=== PATIENT | male | born 1935 | race Caucasian/White ===

== ENCOUNTER 2017-04-15 04:35 | Emergency (ER) | payer MEDICARE ==
[~2017-04-15] VITALS: Ht 188 cm; Wt 122.7 kg
[~2017-04-15 04:35] MED LIST: ASPIRIN EC81 MG PO; CARBAMAZEPIN200 MG PO; CARVEDILOL12.5 MG PO; CIPROFLOXACN500 MG PO; DIOVAN160 MG PO; ENDOCET1 TA3 PO; HUMULIN N1 ML SC; KEFLEX500 MG PO; LEVOTHYROXIN100 MC1 PO; LEVOTHYROXIN100 MCG PO; LOSARTAN POT50 MG PO; PERCOCET 10/31 COMBO PO; RED YEAST RICE EXTRA PO; VANTIN100 MG PO
[2017-04-15] MEDS ORDERED: TOPROL XL50 MG PO (04:56)
[2017-04-15] MEDS ORDERED: ANTIVERT PO (04:57)
[2017-04-15] MEDS ORDERED: LASIX 20 MG TAB20 MG PO (04:58)
[2017-04-15 05:18] LABS: URINE BILIRUBIN - DIPSTICK NEGATIVE (NEGATIVE); URINE BLOOD DIPSTICK SMALL (NEGATIVE); URINE COLOR YELLOW; URINE GLUCOSE - DIPSTICK 500 mg/dL (NEGATIVE); URINE KETONE NEGATIVE (NEGATIVE); URINE LEUK ESTERASE NEGATIVE (NEGATIVE); URINE NITRITE - DIPSTICK NEGATIVE (Negative); URINE PROTEIN - DIPSTICK NEGATIVE (NEG-TRACE); URINE UROBILINOGEN - DIPSTICK 0.2 E.U./dL (0.2)
[2017-04-15 05:19] LABS: URINE CLARITY CLEAR
[2017-04-15 05:29] LABS: URINE RBC 0-2 RBC/hpf (0-5); URINE SQUAMOUS EPITHELIAL CELL FEW EPI/hpf (0-FEW); URINE WBC 0-2 WBC/hpf (0-5)
[2017-04-15 06:38] LABS: HEMATOCRIT 38.6 % (39.0-50.0); HEMOGLOBIN 13.2 g/dl (14.0-18.0); IMMATURE GRANULOCYTES 0.4 % (0.0-1.0); MEAN CELL VOLUME 86.4 fL CALC (80.0-100.0); MEAN CORPUSCULAR HGB 29.5 pG CALC (26.0-32.0); MEAN CORPUSCULAR HGB CONC 34.2 g/L CALC (32.0-36.0); NEUT# 10.85 thou/uL (1.82-7.42); RED BLOOD COUNT 4.47 mill/uL (4.70-6.10); RED CELL DISTRI WIDTH 12.7 % (11.5-15.5)
[2017-04-15 07:06] LABS: ALBUMIN 3.9 g/dL (3.2-5.0); ALKALINE PHOSPHATASE 108 u/l (38-126); ANION GAP 16 (6-22 (CALC)); BILIRUBIN, TOTAL 0.4 mg/dL (0.0-1.4); BUN 23 mg/dL (8-23); BUN/CREATININE RATIO 17 (12-20 (CALC)); CALCIUM 9.5 mg/dL (8.4-10.2); CARBON DIOXIDE 24 mmol/l (22-30); CHLORIDE 101 mmol/l (95-108); CREATININE 1.3 mg/dL (0.7-1.3); GFR 53 ML/MIN (>=60 (CALC)); GFR FOR AFR.AMER. > 60 ML/MIN (>=60 (CALC)); GLUCOSE 228 mg/dL (82-115); POTASSIUM 4.7 mmol/l (3.5-5.1); SGOT/AST 25 u/l (19-48); SGPT/ALT 31 u/l (11-66); SODIUM 136 mmol/l (137-146); TOTAL PROTEIN 6.4 g/dL (6.3-8.2)
[2017-04-15 10:25] VITALS: BP 132/68
== END 2017-04-15 10:25 | disposition short-term general hospital (02) ==
LOC: ED 04:35
PROVIDERS: Emergency Medicine
DX: S72.141A Displaced intertrochanteric fracture of right femur, initial encounter for closed fracture (principal); E11.9 Type 2 diabetes mellitus without complications; I10 Essential (primary) hypertension; E03.9 Hypothyroidism, unspecified; W18.30XA Fall on same level, unspecified, initial encounter; Y92.003 Bedroom of unspecified non-institutional (private) residence as the place of occurrence of the external cause; R42 Dizziness and giddiness

== ENCOUNTER 2020-07-04 05:16 | Emergency (ER) | payer MEDICARE ==
[~2020-07-04 05:16] MED LIST changes: +ANTIVERT PO; +LASIX 20 MG TAB20 MG PO; +TOPROL XL50 MG PO
[2020-07-04 05:34] LABS: HEMATOCRIT 37.9 % (39.0-50.0); HEMOGLOBIN 12.2 g/dl (14.0-18.0); IMMATURE GRANULOCYTES 0.3 % (0.0-5.0); MEAN CELL VOLUME 90.5 fL CALC (80.0-100.0); MEAN CORPUSCULAR HGB 29.1 pG CALC (26.0-32.0); MEAN CORPUSCULAR HGB CONC 32.2 g/dL CAL (32.0-36.0); NEUT# 10.41 thou/uL (1.82-7.42); RED BLOOD COUNT 4.19 mill/uL (4.70-6.10); RED CELL DISTRI WIDTH 13.1 % (11.5-15.5)
[2020-07-04] MEDS ORDERED: MECLIZINE25 MG PO (05:40)
[2020-07-04] MEDS ORDERED: HUMULIN N100 UNIT/M SC (05:43)
[2020-07-04 05:51] LABS: BILIRUBIN, TOTAL 0.5 mg/dL (0.0-1.4); POTASSIUM 4.1 mmol/l (3.5-5.1); TOTAL PROTEIN 7.1 g/dL (6.3-8.2)
[2020-07-04 06:31] VITALS: BP 154/69
== END 2020-07-04 06:33 | disposition home or self-care (01) ==
LOC: ED 05:16
PROVIDERS: Family Medicine
DX: E11.649 Type 2 diabetes mellitus with hypoglycemia without coma (principal); I10 Essential (primary) hypertension; E03.9 Hypothyroidism, unspecified; Z79.4 Long term (current) use of insulin

== ENCOUNTER 2023-12-04 13:26 | Inpatient (IN) | payer MEDICARE ==
[2023-12-04] VITALS (7 sets, daily range): BP systolic 113–153; BP diastolic 56–89
[~2023-12-04] VITALS: Ht 188 cm; Wt 91.2 kg
[~2023-12-04 13:26] MED LIST changes: +HUMULIN N100 UNIT/M SC; +MECLIZINE25 MG PO
[2023-12-04] MEDS ORDERED: VANCOMYCIN HCL 1 GM in SODIUM CHLORIDE 0.9% 250 ML IV ONE (14:55)
[2023-12-04] MEDS ORDERED: CEFEPIME HYDROCHLORIDE 2 GM in SODIUM CHLORIDE 0.9% 100 ML IV ONE (14:55)
[2023-12-04 15:08] LABS: BASO% 0.5 % (0-3); EOS% 7.5 % (0-8); HEMATOCRIT 34.4 % (39.0-50.0); HEMOGLOBIN 11.6 g/dl (14.0-18.0); IMMATURE GRANULOCYTES 0.2 % (0.0-5.0); LYMPH% 15.9 % (15-41); MEAN CELL VOLUME 87.5 fL CALC (80.0-100.0); MEAN CORPUSCULAR HGB 29.5 pG CALC (26.0-32.0); MEAN CORPUSCULAR HGB CONC 33.7 g/dL CAL (32.0-36.0); MONO% 7.7 % (2-13); NEUT# 4.25 thou/uL (1.82-7.42); NEUT% 68.2 % (42-76); RED BLOOD COUNT 3.93 mill/uL (4.70-6.10)
[2023-12-04 15:25] LABS: ALBUMIN 3.8 g/dL (3.2-5.0); CREATININE 1.8 mg/dL (0.7-1.3); POTASSIUM 4.3 mmol/l (3.5-5.1); TOTAL PROTEIN 6.4 g/dL (6.3-8.2)
[2023-12-04 15:47] LABS: BILIRUBIN, TOTAL 0.7 mg/dL (0.2-1.3)
[2023-12-04] MEDS ORDERED: MAGNESIUM HYDROXIDE 30 ML UDC PO PRN (16:10)
[2023-12-04] MEDS ORDERED: ACETAMINOPHEN 325 MG/TAB PO PRN (16:10)
[2023-12-04] MEDS ORDERED: SODIUM CHLORIDE 0.9% 1,000 ML IV PRN (16:10)
[2023-12-04] MEDS ORDERED: INSULIN LISPRO 100 UNITS/ML ML SC SCH ×2 (17:00→22:15)
[2023-12-04] MEDS ORDERED: CEFEPIME HYDROCHLORIDE 2 GM in SODIUM CHLORIDE 0.9% 100 ML IV SCH (17:45)
[2023-12-04] MEDS ORDERED: DEXTROSE 250 ML IV PRN ×2 (19:45→22:05)
[2023-12-04] MEDS ORDERED: oxyCODONE 10MG/APAP 325 MG 1 COMBO TAB PO PRN (19:45)
[2023-12-04] MEDS ORDERED: INSULIN NPH 100 UNIT/ML SC SCH (19:50)
[2023-12-04] MEDS ORDERED: METOPROLOL SUCCINATE 50 MG/TAB PO SCH (21:00)
[2023-12-04] MEDS ORDERED: ENOXAPARIN SODIUM 30 MG/0.3 ML INJ SC SCH (21:00)
[2023-12-04] MEDS ORDERED: CARBAMAZEPINE 200 MG TAB PO SCH (21:00)
[2023-12-04] MEDS ORDERED: INSULIN DETEMIR 100 UNITS/ML SC SCH (22:00)
[2023-12-05] VITALS (10 sets, daily range): BP systolic 109–148; BP diastolic 44–74
[2023-12-05 04:56] LABS: HEMATOCRIT 30.9 % (39.0-50.0); HEMOGLOBIN 10.3 g/dl (14.0-18.0); MEAN CELL VOLUME 88.5 fL CALC (80.0-100.0); MEAN CORPUSCULAR HGB 29.5 pG CALC (26.0-32.0); MEAN CORPUSCULAR HGB CONC 33.3 g/dL CAL (32.0-36.0); RED BLOOD COUNT 3.49 mill/uL (4.70-6.10); RED CELL DISTRI WIDTH 13.1 % (11.5-15.5)
[2023-12-05 05:12] LABS: ALBUMIN 3.1 g/dL (3.2-5.0); CREATININE 1.8 mg/dL (0.7-1.3); POTASSIUM 3.8 mmol/l (3.5-5.1); TOTAL PROTEIN 5.6 g/dL (6.3-8.2)
[2023-12-05 05:20] LABS: BILIRUBIN, TOTAL 0.3 mg/dL (0.2-1.3)
[2023-12-05] MEDS ORDERED: LEVOTHYROXINE SODIUM 100 MCG TAB PO SCH (06:00)
[2023-12-05] MEDS ORDERED: LOSARTAN Potassium 25 MG/TAB PO SCH (09:00)
[2023-12-05] MEDS ORDERED: ASPIRIN EC 81 MG/TAB PO SCH (09:00)
[2023-12-05] MEDS ORDERED: VANCOMYCIN HCL 1 GM in SODIUM CHLORIDE 0.9% 250 ML IV SCH (17:00)
[2023-12-05] MEDS ORDERED: SODIUM CHLORIDE 0.9% 250 ML IV ONE (17:57)
[2023-12-05] MEDS ORDERED: INSULIN DETEMIR 100 UNITS/ML SC SCH (21:00)
[2023-12-06] VITALS (12 sets, daily range): BP systolic 117–161; BP diastolic 45–77
[2023-12-06 05:50] LABS: BASO% 0.8 % (0-3); EOS% 7.8 % (0-8); HEMOGLOBIN 10.8 g/dl (14.0-18.0); IMMATURE GRANULOCYTES 0.3 % (0.0-5.0); MEAN CELL VOLUME 89.9 fL CALC (80.0-100.0); MEAN CORPUSCULAR HGB 30.3 pG CALC (26.0-32.0); MEAN CORPUSCULAR HGB CONC 33.8 g/dL CAL (32.0-36.0); MONO% 8.7 % (2-13); NEUT# 4.2 thou/uL (1.82-7.42); NEUT% 55.4 % (42-76); RED BLOOD COUNT 3.56 mill/uL (4.70-6.10); RED CELL DISTRI WIDTH 13.3 % (11.5-15.5)
[2023-12-06 05:53] LABS: ALBUMIN 3.4 g/dL (3.2-5.0); CREATININE 1.5 mg/dL (0.7-1.3); MAGNESIUM 1.9 mg/dL (1.6-2.3); TOTAL PROTEIN 6.2 g/dL (6.3-8.2)
[2023-12-06 05:55] LABS: BILIRUBIN, TOTAL 0.5 mg/dL (0.2-1.3)
[2023-12-06] MEDS ORDERED: FAMOTIDINE 10MG/ML 2ML SDV IV ONE (06:58)
[2023-12-06] MEDS ORDERED: SODIUM CHLORIDE 0.9% 1,000 ML IV ONE (07:30)
[2023-12-06] MEDS ORDERED: STERILE WATER FOR IRRIGATION 1,000 ML BTL IR ONE (07:30)
[2023-12-06] MEDS ORDERED: BUPIVACAINE HCL PF 0.5% 30 ML VIAL ONE (07:30)
[2023-12-06] MEDS ORDERED: SODIUM CHLORIDE 1,000 ML BTL IR ONE (07:30)
[2023-12-06] MEDS ORDERED: SODIUM CHLORIDE 0.9% 1,000 ML BAG IV ONE (08:56)
[2023-12-06] MEDS ORDERED: REMIMAZOLAM BESYLATE 20 MG/VIAL INJ IV ONE (08:56)
[2023-12-07 04:50] VITALS: BP 162/72
[2023-12-07 04:58] LABS: BASO% 0.9 % (0-3); EOS% 8.1 % (0-8); HEMATOCRIT 33.4 % (39.0-50.0); IMMATURE GRANULOCYTES 0.3 % (0.0-5.0); LYMPH% 18.9 % (15-41); MEAN CELL VOLUME 89.8 fL CALC (80.0-100.0); MEAN CORPUSCULAR HGB 29.6 pG CALC (26.0-32.0); MEAN CORPUSCULAR HGB CONC 32.9 g/dL CAL (32.0-36.0); MONO% 8.4 % (2-13); NEUT# 4.32 thou/uL (1.82-7.42); NEUT% 63.4 % (42-76); RED BLOOD COUNT 3.72 mill/uL (4.70-6.10); RED CELL DISTRI WIDTH 13.3 % (11.5-15.5)
[2023-12-07 05:10] LABS: ALBUMIN 3.4 g/dL (3.2-5.0); BILIRUBIN, TOTAL 0.3 mg/dL (0.2-1.3); CREATININE 1.5 mg/dL (0.7-1.3); MAGNESIUM 1.9 mg/dL (1.6-2.3); POTASSIUM 3.4 mmol/l (3.5-5.1); TOTAL PROTEIN 6.1 g/dL (6.3-8.2)
[2023-12-07] MEDS ORDERED: POTASSIUM CHLORIDE 20 MEQ/TAB PO SCH (10:30)
[2023-12-07 15:09] VITALS: BP 145/61
[2023-12-07 15:11] VITALS: BP 145/61
[2023-12-07 18:41] VITALS: BP 160/70
[2023-12-07 18:53] VITALS: BP 142/78; BP 160/70
[2023-12-08 04:06] VITALS: BP 176/81
[2023-12-08 05:24] LABS: HEMATOCRIT 36.5 % (39.0-50.0); HEMOGLOBIN 11.5 g/dl (14.0-18.0); MEAN CELL VOLUME 92.9 fL CALC (80.0-100.0); MEAN CORPUSCULAR HGB 29.3 pG CALC (26.0-32.0); MEAN CORPUSCULAR HGB CONC 31.5 g/dL CAL (32.0-36.0); RED BLOOD COUNT 3.93 mill/uL (4.70-6.10); RED CELL DISTRI WIDTH 13.5 % (11.5-15.5)
[2023-12-08 05:36] LABS: ALBUMIN 3.1 g/dL (3.2-5.0); BILIRUBIN, TOTAL 0.3 mg/dL (0.2-1.3); CREATININE 1.4 mg/dL (0.7-1.3); MAGNESIUM 1.8 mg/dL (1.6-2.3); TOTAL PROTEIN 5.8 g/dL (6.3-8.2)
[2023-12-08 05:50] LABS: POTASSIUM 4.1 mmol/l (3.5-5.1)
[2023-12-08 07:01] VITALS: BP 127/82
[2023-12-08 18:21] VITALS: BP 164/71
[2023-12-08] MEDS ORDERED: CEFEPIME HYDROCHLORIDE 2 GM in SODIUM CHLORIDE 0.9% 100 ML IV SCH (21:00)
[2023-12-09 02:54] VITALS: BP 138/69
[2023-12-09 06:01] LABS: HEMATOCRIT 37.1 % (39.0-50.0); HEMOGLOBIN 11.9 g/dl (14.0-18.0); MEAN CELL VOLUME 92.1 fL CALC (80.0-100.0); MEAN CORPUSCULAR HGB 29.5 pG CALC (26.0-32.0); MEAN CORPUSCULAR HGB CONC 32.1 g/dL CAL (32.0-36.0); RED BLOOD COUNT 4.03 mill/uL (4.70-6.10); RED CELL DISTRI WIDTH 13.3 % (11.5-15.5)
[2023-12-09 06:08] LABS: ALBUMIN 3.2 g/dL (3.2-5.0); BILIRUBIN, TOTAL 0.3 mg/dL (0.2-1.3); CREATININE 1.2 mg/dL (0.7-1.3); POTASSIUM 3.8 mmol/l (3.5-5.1)
[2023-12-09 07:00] VITALS: BP 167/77
[2023-12-09] MEDS ORDERED: CEFEPIME HYDROCHLORIDE 2 GM in SODIUM CHLORIDE 0.9% 100 ML IV SCH (09:00)
[2023-12-09] MEDS ORDERED: cefTRIAXone SODIUM 2 GM in SODIUM CHLORIDE 0.9% 100 ML IV SCH (10:00)
[2023-12-09] MEDS ORDERED: CEFTRIAXONE2 GM IV (11:19)
[2023-12-09 15:30] VITALS: BP 170/67
[2023-12-09] MEDS ORDERED: ENOXAPARIN SODIUM 40 MG/0.4 ML SYR SC SCH (21:00)
[2023-12-09 23:53] VITALS: BP 165/67
[2023-12-10 04:34] VITALS: BP 157/65
[2023-12-10] MEDS ORDERED: SODIUM CHLORIDE 0.9% 10 ML SYR IV SCH (04:45)
[2023-12-10] MEDS ORDERED: SODIUM CHLORIDE 0.9% 10 ML SYR IV PRN (04:45)
[2023-12-10 05:42] LABS: BASO% 0.8 % (0-3); EOS% 9.2 % (0-8); HEMATOCRIT 33.7 % (39.0-50.0); HEMOGLOBIN 10.9 g/dl (14.0-18.0); IMMATURE GRANULOCYTES 0.1 % (0.0-5.0); MEAN CELL VOLUME 90.1 fL CALC (80.0-100.0); MEAN CORPUSCULAR HGB 29.1 pG CALC (26.0-32.0); MEAN CORPUSCULAR HGB CONC 32.3 g/dL CAL (32.0-36.0); MONO% 8.1 % (2-13); NEUT# 3.98 thou/uL (1.82-7.42); NEUT% 55.8 % (42-76); RED BLOOD COUNT 3.74 mill/uL (4.70-6.10); RED CELL DISTRI WIDTH 13.3 % (11.5-15.5)
[2023-12-10 05:56] LABS: ALBUMIN 3.1 g/dL (3.2-5.0); BILIRUBIN, TOTAL 0.3 mg/dL (0.2-1.3); CREATININE 1.5 mg/dL (0.7-1.3); MAGNESIUM 1.9 mg/dL (1.6-2.3); POTASSIUM 3.8 mmol/l (3.5-5.1); TOTAL PROTEIN 5.8 g/dL (6.3-8.2)
[2023-12-10 06:54] VITALS: BP 167/73
[2023-12-10 09:39] VITALS: BP 167/73
[2023-12-10] MEDS ORDERED: LACTULOSE 20 GM/30 ML UDC PO SCH (10:00)
[2023-12-10] MEDS ORDERED: MAGNESIUM CITRATE 296 ML/BTL PO SCH (10:30)
[2023-12-10] MEDS ORDERED: PERCOCET 10/31 COMBO PO (10:48)
== END 2023-12-10 16:38 | DRG 617 ==
LOC: ED 13:26 → ED-I 14:56 → ED 16:14 → MS2 16:15
PROVIDERS: Family Medicine; Nurse Practitioner Family; ADMIT Internal Medicine; ATTEND Internal Medicine
PROC: 0Y6P0Z0 Detachment at Right 1st Toe, Complete, Open Approach (ICD-10-PCS; principal; 2023-12-06)
PROC: 0QBN0ZZ Excision of Right Metatarsal, Open Approach (ICD-10-PCS; 2023-12-06)
PROC: 0HXMXZZ Transfer Right Foot Skin, External Approach (ICD-10-PCS; 2023-12-06)
PROC: 02HV33Z Insertion of Infusion Device into Superior Vena Cava, Percutaneous Approach (ICD-10-PCS; 2023-12-09)
PROC: B518ZZA Fluoroscopy of Superior Vena Cava, Guidance (ICD-10-PCS; 2023-12-09)
DX: E11.69 Type 2 diabetes mellitus with other specified complication (principal); F05 Delirium due to known physiological condition; M86.171 Other acute osteomyelitis, right ankle and foot; G93.40 Encephalopathy, unspecified; E11.621 Type 2 diabetes mellitus with foot ulcer; L97.519 Non-pressure chronic ulcer of other part of right foot with unspecified severity; L03.031 Cellulitis of right toe; B95.61 Methicillin susceptible Staphylococcus aureus infection as the cause of diseases classified elsewhere; E11.65 Type 2 diabetes mellitus with hyperglycemia; E11.42 Type 2 diabetes mellitus with diabetic polyneuropathy; I12.9 Hypertensive chronic kidney disease with stage 1 through stage 4 chronic kidney disease, or unspecified chronic kidney disease; E11.22 Type 2 diabetes mellitus with diabetic chronic kidney disease; N18.32 Chronic kidney disease, stage 3b; I25.10 Atherosclerotic heart disease of native coronary artery without angina pectoris; E03.9 Hypothyroidism, unspecified; Z79.4 Long term (current) use of insulin; Z85.46 Personal history of malignant neoplasm of prostate; Z87.891 Personal history of nicotine dependence; Z20.822 Contact with and (suspected) exposure to COVID-19; D63.8 Anemia in other chronic diseases classified elsewhere; Z78.1 Physical restraint status; E87.6 Hypokalemia
CPT/HCPCS: J0692; J1650; J3490; S0166